=== PATIENT | female | born 2000 | race Hispanic/Latino ===

== ENCOUNTER 2020-11-28 11:28 | Day surgery (SDC) | payer BC ==
[2020-11-24 13:27] VITALS: BMI 34.4
[2020-11-28] MEDS ORDERED: Fentanyl 100 MCG/2 ML VIAL ONE ×4 (14:09→15:47)
[2020-11-28] MEDS ORDERED: PROPOFOL 200 MG/20 ML VIAL ONE (14:19)
[2020-11-28] MEDS ORDERED: Dexamethasone 20 MG/5 ML VIAL ONE (14:19)
[2020-11-28] MEDS ORDERED: Ondansetron PF 4 MG/2 ML Vial ONE (14:19)
[2020-11-28] MEDS ORDERED: Ketorolac Tromethamine 30 MG/ML VIAL ONE (14:19)
[2020-11-28] MEDS ORDERED: Lidocaine 1% PF 5 ML VIAL ONE (14:19)
[2020-11-28] MEDS ORDERED: Bupivacaine PF 0.5% 30 ML VIAL ONE (14:47)
== END 2020-11-28 18:15 | disposition home health service (06) ==
LOC: SDC 11:28
PROVIDERS: ATTEND Orthopaedic Surgery
PROC: 0SPF04Z Removal of Internal Fixation Device from Right Ankle Joint, Open Approach (ICD-10-PCS; principal; 2020-11-28)
DX: T84.84XA Pain due to internal orthopedic prosthetic devices, implants and grafts, initial encounter (principal); E28.2 Polycystic ovarian syndrome; E66.9 Obesity, unspecified; Z68.34 Body mass index [BMI] 34.0-34.9, adult; Z79.899 Other long term (current) drug therapy
CPT/HCPCS: 76000; J0690; J1100; J1885; J2405; J2704; J3010; S0020